=== PATIENT | female | born 1955 | race Caucasian/White ===

== ENCOUNTER 2017-12-14 10:29 | Emergency (ER) | payer OTHER ==
[~2017-12-14] VITALS: Ht 152.4 cm; Wt 59.3 kg
[2017-12-14] MEDS ORDERED: ONDANSETRON ODT 4 MG PO ONE (12:00)
[2017-12-14] MEDS ORDERED: ONDANSETRON ODT 4 MG ONE (12:19)
[2017-12-14 13:35] VITALS: BP 133/70
== END 2017-12-14 14:06 | disposition home or self-care (01) ==
LOC: ED 11:37
DX: S80.211A Abrasion, right knee, initial encounter (principal); G44.319 Acute post-traumatic headache, not intractable; Z87.891 Personal history of nicotine dependence; W22.8XXA Striking against or struck by other objects, initial encounter; Y93.89 Activity, other specified; Y92.69 Other specified industrial and construction area as the place of occurrence of the external cause; Y99.0 Civilian activity done for income or pay
CPT/HCPCS: 70450; 99284; Q0162